=== PATIENT | male | born 1960 | race Caucasian/White ===

== ENCOUNTER 2018-12-10 12:07 | Outpatient (CLI) | payer MEDICARE ==
[~2018-12-10 12:07] MED LIST: ISOVUE-370 76%-LOCM 1 ML ONE
--- NOTE | 2018-12-10 13:29 | CT ---
Exam: Postcontrast soft tissue neck CT HISTORY: Swelling, mass, and left supraclavicular mass. Eval for adenopathy versus lymphoma. Comparison none FINDINGS: Visualized brain parenchyma is unremarkable. There is left maxillary sinus disease likely due to muco ana thickening as well as mucous retention cyst. Aerodigestive tract is patent. No mucosal abnormalities. Midline fatty raphae of the tongue is preser alpesh. Epiglottis has a normal caliber. Preepiglottic fat is preserved. No prevertebral soft tissue swelling. Symmetric attenuation of the parotid and submandibular glands Symmetric attenuation of the mastoid muscles. Unremarkable thyroid gland Grossly the great vessels of the neck are patent. No significant stenosis. Evaluation is limited due to technique Cervical spine vertebral body height is maintained. No fracture. Varying degrees of central canal stenosis and foraminal narrowing on the basis of degenerative change . Visualized mediastinum and lung apices are unremarkable. With regards of the right neck, no evidence of mass or lymphadenopathy. With regards to left neck, there is a well-circumscribed isodense mass measuring 2.9 x 2.5 cm with an attenuation coefficient of 95 Hounsfield units. This lesion is deep to the sternocleidomastoid muscle and lateral to the left carotid space and does cause some mass effect on the left internal jug ular vein. There is a second smaller similar attenuation mass just anterior to the aforementioned mass measuring 1.4 x 1.4 cm. IMPRESSION: 2 discrete enhancing isodense masses in the left neck, just lateral to the carotid space and deep to the sternocleidomastoid muscle. Enlarged lymph nodes are favored. Lesions may be amenable to ultrasound-guided fine-needle aspiration. Etiology for the enlarged lymph nodes is uncertain. Occult squamous cell carcinoma with lymph node metastases versus primary malignancy lymph node are differential considerations.
== END 2018-12-10 12:08 | disposition home or self-care (01) ==
LOC: BICCT 12:07
PROVIDERS: ATTEND Otolaryngology Otolaryngic Allergy
DX: R22.1 Localized swelling, mass and lump, neck (principal)
CPT/HCPCS: 70491

== ENCOUNTER 2019-01-16 07:31 | Day surgery (SDC) | payer MEDICARE ==
[2019-01-15 12:16] VITALS: BMI 26.3
[2019-01-16 07:49] LABS: #Eosinphils 0.2 thou/uL (0.0-0.7); #Lymphocytes 1.3 thou/uL (1.20-3.40); #Monocytes 0.4 thou/uL (0.11-0.59); #Neutrophils 1.6 thou/uL (1.40-6.50); %Basophils 1.3 % (0.0-1.0); %Lymphocytes 37.4 % (21.0-51.0); %Monocytes 11.2 % (0.0-10.0); %Neutrophils 45.1 % (42.0-75.0); Hemoglobin 16.5 g/dL (14.0-18.0); Mean Corpuscular HGB CONC 34.7 g/dL (32.0-36.0); Mean Corpuscular Hemoglobin 35.3 pg (27.0-31.0); Mean Platelet Volume 6.8 fL (7.4-10.4); Platelet Count 195 thou/uL (130-400); RBC Distribution Width 11.2 % (11.5-14.5); Red Blood Cell (RBC) Count 4.68 mill/uL (4.70-6.10); White Blood Cell (WBC) Count 3.6 thou/uL (4.8-10.8)
[2019-01-16 07:55] LABS: PTT 25.2 SEC (22.9-36.1); Prothrombin Time 13.1 SEC (12.0-14.7)
[2019-01-16 08:52] VITALS: BP 165/105; TEMP 98.7
--- NOTE | 2019-01-16 09:49 | ULT ---
US Lymph Nodes Needle BX CLINICAL HISTORY: Adenopathy of left neck. PROCEDURE: Informed consent was obtained and the patient was escorted to the procedural suite, placed in supine position. The patient's skin was prepped and draped in a standard sterile fashion and topical anesthesia with buffered 1% lidocaine was performed. After a small skin incision was made, an 25-gaug e needle were advanced to the leading edge of the left neck mass. After adequate placement was confirmed with ultrasound imaging, 4 subsequent FNA specimens were obtained via percutaneous biopsy. These were confirmed ultrasound imaging and the specimens were submitted to the pathologist for adequacy. Specimens were deemed adequate for interpretation. Therefore, all devices were then removed from the patient. No unexpected procedural complications were present. The patient was monitored in radiology holding i n stable condition prior to discharge with family member. IMPRESSION: Technically successful percutaneous left neck mass biopsy. Pathology results are pending.
== END 2019-01-16 09:50 | disposition home or self-care (01) ==
LOC: ULT 07:31
PROVIDERS: ATTEND Otolaryngology Otolaryngic Allergy
PROC: 07923ZX Drainage of Left Neck Lymphatic, Percutaneous Approach, Diagnostic (ICD-10-PCS; principal; 2019-01-16)
DX: C77.0 Secondary and unspecified malignant neoplasm of lymph nodes of head, face and neck (principal); C80.1 Malignant (primary) neoplasm, unspecified; F17.220 Nicotine dependence, chewing tobacco, uncomplicated; Z86.73 Personal history of transient ischemic attack (TIA), and cerebral infarction without residual deficits
CPT/HCPCS: 36415; 38505; 85025; 85610; 85730; 88172; 88173; 88184; 88305; 88341; 88342; 88365

== ENCOUNTER 2019-01-27 08:14 | Outpatient (CLI) | payer MEDICARE ==
--- NOTE | 2019-01-27 10:30 | RAD ---
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 FINDINGS: Heart size normal. Minimal linear and parenchymal changes noted in the right suprahilar region and ri ght upper lobe, having more of a chronic appearance. No confluent pneumonia or overt edema. IMPRESSION: Mild chronic linear changes in the right upper lobe. No acute intrathoracic disease. Mild atheroscler osis of aorta. POS: [facility]
== END 2019-01-27 08:15 | disposition home or self-care (01) ==
LOC: BICRAD 08:14
PROVIDERS: ATTEND Otolaryngology Otolaryngic Allergy
DX: C77.9 Secondary and unspecified malignant neoplasm of lymph node, unspecified (principal); C80.1 Malignant (primary) neoplasm, unspecified; I70.0 Atherosclerosis of aorta
CPT/HCPCS: 71046

== ENCOUNTER 2019-02-19 09:40 | Outpatient (CLI) | payer MEDICARE ==
--- NOTE | 2019-02-19 11:40 | PET ---
Exam: Whole body PET imaging History: Piriform sinus cancer. Lymph node metastases. Comparison: None TECHNIQUE: PET scan with CT attenuation correction was performed from the skull vertex to the proxima l thighs following the intravenous administration of 12.6 mg of [id number]. FINDINGS: Head and neck: Hypermetabolic left level 5 lymph node with a maximum SUV of 7. Second smaller hyperme tabolic lymph node with a maximum SUV of 13.4. No additional evidence of hypermetabolic activity in the left or right neck. CT used for attenuation correction demonstrate asymmetric mucosal prominence at the level of the righ t piriform sinus with partial effacement of the piriform sinus. There does not appear to be any associated FDG avidity. Maximum SUV is 2.1. There is no abnormal FDG avidity in the left piriform sin us. Head and neck: Abnormal FDG avidity is not appreciated Abdomen pelvis: Physiologic distribution of radiotracer. No abnormal FDG localization. CT used for at tenuation correction demonstrates a nonhypermetabolic hypodensity in the left hepatic lobe. Osseous structures: No abnormal FDG localization IMPRESSION: 1. No abnormal FDG avidity at the level of right or left piriform sinus. 2. Hypermetabolic left level 5 lymph nodes. Additional hypermetabolic lymphadenopathy is not apprecia kel Transcribed Date/Time: 02/19/2019 12:39 PM
== END 2019-02-19 09:41 | disposition home or self-care (01) ==
LOC: PET 09:40
PROVIDERS: ATTEND Radiology Radiation Oncology
DX: C12 Malignant neoplasm of pyriform sinus (principal)
CPT/HCPCS: 78815; A9552

== ENCOUNTER 2019-03-04 09:45 | Day surgery (SDC) | payer MEDICARE ==
[~2019-03-04 09:45] MED LIST changes: +ADMIXTURE FEE CHEMO IVPB SCH; +CETUXIMAB IVPB SCH; -ISOVUE-370 76%-LOCM 1 ML ONE; +diphenhydrAMINE 50 MG in Sodium Chloride 0.9% 50 ML IVPB SCH
[2019-03-04] MEDS ORDERED: Sodium Chloride 0.9% 20 ML ONE ×2 (09:50→10:09)
[2019-03-04] MEDS ORDERED: CETUXIMAB IVPB SCH (10:00)
[2019-03-04] MEDS ORDERED: ADMIXTURE FEE CHEMO IVPB SCH (10:00)
[2019-03-04 14:59] VITALS: BP 149/90; TEMP 98.5
== END 2019-03-04 15:00 | disposition home or self-care (01) ==
LOC: ONC/OP 09:45
PROVIDERS: ATTEND Internal Medicine Medical Oncology
DX: Z51.12 Encounter for antineoplastic immunotherapy (principal); C12 Malignant neoplasm of pyriform sinus; E03.9 Hypothyroidism, unspecified
CPT/HCPCS: 96375; 96413; 96415; J1200; J9055

== ENCOUNTER 2019-03-12 09:30 | Day surgery (SDC) | payer MEDICARE ==
[~2019-03-12 09:30] MED LIST changes: +diphenhydrAMINE 25 MG in Sodium Chloride 0.9% 50 ML IVPB SCH; -diphenhydrAMINE 50 MG in Sodium Chloride 0.9% 50 ML IVPB SCH
[2019-03-12] MEDS ORDERED: Sodium Chloride 0.9% 20 ML ONE (09:38)
== END 2019-03-12 13:12 | disposition home or self-care (01) ==
LOC: ONC/OP 09:30
PROVIDERS: ATTEND Internal Medicine Medical Oncology
DX: Z51.11 Encounter for antineoplastic chemotherapy (principal); C12 Malignant neoplasm of pyriform sinus; E03.9 Hypothyroidism, unspecified; R97.8 Other abnormal tumor markers
CPT/HCPCS: 96375; 96413; J1200; J9055

== ENCOUNTER 2019-03-19 09:30 | Day surgery (SDC) | payer MEDICARE ==
[2019-03-19 10:07] VITALS: BP 150/92; TEMP 98.4
[2019-03-19] MEDS ORDERED: Sodium Chloride 0.9% 20 ML ONE (10:12)
[2019-03-19] MEDS ORDERED: ADMIXTURE FEE CHEMO IVPB SCH (10:45)
[2019-03-19] MEDS ORDERED: CETUXIMAB IVPB SCH (10:45)
== END 2019-03-19 12:29 | disposition home or self-care (01) ==
LOC: ONC/OP 09:30
PROVIDERS: ATTEND Internal Medicine Medical Oncology
DX: Z51.11 Encounter for antineoplastic chemotherapy (principal); C12 Malignant neoplasm of pyriform sinus; E03.9 Hypothyroidism, unspecified; R97.8 Other abnormal tumor markers
CPT/HCPCS: 96375; 96413; J1200; J9055

== ENCOUNTER 2019-03-26 09:18 | Day surgery (SDC) | payer MEDICARE ==
[2019-03-26 09:37] VITALS: BP 120/79; TEMP 98.3
[2019-03-26] MEDS ORDERED: Sodium Chloride 0.9% 20 ML ONE (09:52)
== END 2019-03-26 12:09 | disposition home or self-care (01) ==
LOC: ONC/OP 09:18
PROVIDERS: ATTEND Internal Medicine Medical Oncology
DX: Z51.12 Encounter for antineoplastic immunotherapy (principal); C12 Malignant neoplasm of pyriform sinus; E03.9 Hypothyroidism, unspecified
CPT/HCPCS: 77386; 96375; 96413; J1200; J9055

== ENCOUNTER 2019-04-02 09:18 | Day surgery (SDC) | payer MEDICARE ==
[2019-04-02] MEDS ORDERED: Sodium Chloride 0.9% 20 ML ONE (09:21)
[2019-04-02 10:12] VITALS: BP 115/79; TEMP 98.3
== END 2019-04-02 11:39 | disposition home or self-care (01) ==
LOC: ONC/OP 09:18
PROVIDERS: ATTEND Internal Medicine Medical Oncology
DX: Z51.12 Encounter for antineoplastic immunotherapy (principal); C12 Malignant neoplasm of pyriform sinus; E03.9 Hypothyroidism, unspecified; Z86.73 Personal history of transient ischemic attack (TIA), and cerebral infarction without residual deficits; Z87.891 Personal history of nicotine dependence
CPT/HCPCS: 96375; 96413; J1200; J9055

== ENCOUNTER 2019-04-09 10:01 | Day surgery (SDC) | payer MEDICARE ==
[2019-04-09 10:19] VITALS: BP 121/84; TEMP 98.2
[2019-04-09] MEDS ORDERED: diphenhydrAMINE 50 MG in Sodium Chloride 0.9% 50 ML IVPB SCH (10:30)
[2019-04-09] MEDS ORDERED: diphenhydrAMINE 25 MG in Sodium Chloride 0.9% 50 ML IVPB SCH (10:30)
[2019-04-09] MEDS ORDERED: ADMIXTURE FEE IVPB SCH (10:30)
[2019-04-09] MEDS ORDERED: CETUXIMAB IVPB SCH (10:30)
== END 2019-04-09 15:30 | disposition home or self-care (01) ==
LOC: ONC/OP 10:01
PROVIDERS: ATTEND Internal Medicine Medical Oncology
DX: Z51.12 Encounter for antineoplastic immunotherapy (principal); C12 Malignant neoplasm of pyriform sinus; E03.9 Hypothyroidism, unspecified; R97.8 Other abnormal tumor markers
CPT/HCPCS: 96375; 96413; J1200; J9055

== ENCOUNTER 2019-07-08 13:10 | Outpatient (CLI) | payer MEDICARE ==
--- NOTE | 2019-07-08 17:17 | PET ---
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 Post treatment follow-up. COMPARISON: 02/19/2019 TECHNIQUE: IV injection of F-18 fluorodeoxyglucose (FDG) dose: 12.2 mCi. PET scan and attenuation correction CT performed from skull base to proximal thighs. PET scan and attenuation correction CT thinner slices performed through head and neck. FINDINGS: SUV (standard uptake values) numbers given are maximum SUVs. QCLR used. New finding of total effacement of the left piriform sinus and near total effacement of the right pir iform sinus, representing edema, presumably post radiation edema. There is a new finding of mildly increased uptake in the hypopharynx, centered slightly to the left of midline, with SUV of 4.4. The previously demonstrated large, approximately 3.3 x 2.7 cm left-sided cervical lymph node straddli ng the levels 3 and 4, has significantly decreased in size, and now measures 1.5 cm. The uptake has decreased from previous SUV of 18.1 to current slightly increased uptake of 3.5 SUV. Directly inferior to that, there was a second left-sided level 4 lymph node measuring 1 x 1.5 cm with SUV of 17.2. It is currently 0.6 x 0.7 cm, with SUV of 2.1 (i.e. no longer hypermetabolic). There is a new finding of small patchy anterolateral apical pleural-based pulmonary densities without increased uptake, consistent with post radiation changes. There is a subtle finding of ill-defined mildly increased uptake around the inferior aspect of the ri ght SI joint, with SUV of 3.1. It is uncertain whether this is arising from the joint itself or represents muscle contraction activity of adjacent gluteal muscle. There is no evidence of suspicious hypermetabolic activity within the rest of the pelvis, chest, or a bdomen. IMPRESSION: 1) partial response to treatment. 2.) Post radiation changes involving the larynx/hypopharynx and lung apices. 3) new finding of mildly increased uptake in the hypopharynx. This is presumed to represent post radi ation changes. 4) significant interval decrease in size and uptake in the 2 metastatic left cervical lymph nodes, le sara 3-4 and level 4. 5) new finding of mildly increased uptake around the inferior aspect of the right sacroiliac joint. P erhaps this represents muscle contraction activity of adjacent gluteal muscle rather than a metastatic bone lesion. Further imaging of this area with MRI is recommended only if the patient is e xperiencing pain in this location.
== END 2019-07-08 13:11 | disposition home or self-care (01) ==
LOC: PET 13:10
PROVIDERS: ATTEND Radiology Radiation Oncology
DX: C12 Malignant neoplasm of pyriform sinus (principal); C79.51 Secondary malignant neoplasm of bone
CPT/HCPCS: 78815; A9552

== ENCOUNTER 2020-01-22 07:24 | Outpatient (CLI) | payer MEDICARE, OTHER ==
--- NOTE | 2020-01-22 13:56 | PET ---
Radionucleotide PET scan with CT attenuation correction HISTORY: Squamous cell carcinoma piriform sinus. Restaging. COMPARISON: 07/08/2019. FINDINGS: Physiologic uptake of radiotracer throughout the enteric system and along each urinary trac t. At the level of the piriform sinuses, mild edema remains, right greater than left. Maximum uptake in this area, a point just to the left of midline, is 3.0 (previously 4.4). Left level 3 lymph node has decreased in size to 0.6 cm, now with a maximum SUV 1.9 (previously 3.5). Level 4 lymph node is no longer hypermetabolic. No new hypermetabolic lymph nodes are present. In addition to healing bilateral rib fractures, there is a new fracture involving the lateral aspect of the left 10th rib with slightly increased uptake max SUV 2.2. Areas of concern at the pelvis on the prior study no longer show increased activity. Nondiagnostic CT attenuation correction images show a polyp within the left maxillary sinus. Small le ft liver lobe cyst is again demonstrated. There is dystrophic calcification prostate gland. IMPRESSION : Continued improvement, with complete resolution of the left cervical lymph node activity and continue d decreased activity at the level of the piriform sinuses. No new hypermetabolic abnormalities.
== END 2020-01-22 07:25 | disposition home or self-care (01) ==
LOC: PET 07:24
PROVIDERS: ATTEND Radiology Radiation Oncology
DX: C12 Malignant neoplasm of pyriform sinus (principal)
CPT/HCPCS: 78815; A9552

== ENCOUNTER 2020-10-29 09:16 | Outpatient (CLI) | payer MEDICARE, OTHER | END 2020-10-29 09:17 | disposition home or self-care (01) | LOC: BICRAD 09:16 | PROVIDERS: ATTEND Radiology Radiation Oncology | DX: C12 Malignant neoplasm of pyriform sinus (principal); Z92.3 Personal history of irradiation; E89.0 Postprocedural hypothyroidism | CPT/HCPCS: 36415; 71046; 84443 ==